=== PATIENT | male | born 1975 | race Caucasian/White ===

== ENCOUNTER 2021-12-05 14:00 | Outpatient (RCR) | payer BC, SELFPAY | END 2022-03-20 14:56 | disposition home or self-care (01) | PROVIDERS: PCP Surgery; Visit Provider Surgery | DX: M25.511 Pain in right shoulder (principal); Z51.89 Encounter for other specified aftercare | CPT/HCPCS: 97110 ==

== ENCOUNTER 2021-12-06 22:41 | Emergency (ER) | payer BC, SELFPAY ==
[2021-12-06 22:53] VITALS: BP 113/75; PULSE 94; RESP 16; TEMP 37.2; O2SAT 97; BMI 21.5
[2021-12-06 23:00] VITALS: BP 124/80; PULSE 92; RESP 16; O2SAT 97
[2021-12-06 23:30] VITALS: BP 120/79; PULSE 79; RESP 16; O2SAT 95
[2021-12-06] MEDS: 0.9 % SODIUM CHLORIDE 1000 ml 1,000 ML IV (23:43)
[2021-12-06] MEDS: ONDANSETRON 2 MG/ML inj 4 MG IVP (23:44)
[2021-12-06] MEDS: KETOROLAC 15 MG/ML inj 30 MG IVP (23:44)
[2021-12-07] VITALS: BP 112/68; PULSE 77; RESP 16; O2SAT 95
[2021-12-07 00:10] LABS: Albumin* 4.4 g/dL (3.3-5.0); Chloride* 104 mmol/L (96-114); Potassium* 3.8 mmol/L (3.6-5.1); Sodium* 137 mmol/L (135-149)
[2021-12-07 00:12] LABS: Aspartate Amino Transferase* 178 U/L (12-35); Est. Creatinine Clearance* 87.88; Estimated Glomerular Filt Rate 93 ml/min
[2021-12-07 00:13] LABS: Alanine Aminotransferase* 104 U/L (4-50); Alkaline Phosphatase* 82 U/L (40-150); Blood Urea Nitrogen* 10 mg/dL (5-24); Calcium* 8.8 mg/dL (8.4-10.6); Carbon Dioxide* 24 mmol/L (20-32); Glucose* 132 mg/dL (60-115); Total Protein* 7.2 g/dL (6.0-8.3)
[2021-12-07 00:30] VITALS: BP 114/69; PULSE 84; RESP 16; O2SAT 97
[2021-12-07] MEDS: KETAMINE HCL 20 MG in 0.9 % SODIUM CHLORIDE 100 ml 100 ML 300.6 MG IVPB (00:36)
[2021-12-07 00:44] LABS: SARS PCR* POSITIVE SARS-CoV-2 (Negative)
--- NOTE | 2021-12-07 01:05 | ED.HA ---
HPI - Headache General Chief Complaint: Unspecified Complaint, Adult Stated Complaint: Vomiting Time Seen by Provider: 12/06/21 23:02 Source: patient and RN notes reviewed Mode of arrival: ambulatory Limitations: no limitations and other (Keeps sunglasses on. Uncomfortable and not readily answering questions) History of Present Illness HPI Narrative: 46-year-old man presenting to the emergency department with complaint of headache and body aches. Symptoms began today. Early afternoon did have episodes of vomiting. Apparently that has subsided. He is here though because otherwise feels unwell with bitemporal headache that extends all the way down to his neck as well.. Not so much short of air but hurts all over such that it might be a little difficult to breathe. He has had a fever of 102.2 apparently. Significant other tested positive for COVID 5 days ago. Neither is vaccinated as to why answers ?that is just me?. No diarrhea though maybe a looser stool. No rashes noted. Would like relief of this headache. Does not generally get headaches. Notes that in the setting of these aches his left knee in particular is in pain. He does present here with a cane. He does not recount a specific injury. No swelling of this knee. Feels like it twisted it he says. Related Data Home Medications Medication Instructions Recorded Confirmed albuterol sulfate 2.5 mg/3 mL mg 12/06/21 (0.083 %) solution for nebulization albuterol sulfate 90 mcg/actuation inhalation 12/06/21 aerosol inhaler (ProAir HFA) budesonide-formoterol HFA 80 inhalation 12/06/21 mcg-4.5 mcg/actuation aerosol inhaler (Symbicort) epinephrine 0.3 mg/0.3 mL 12/06/21 injection, auto-injector hydrocodone 5 mg-acetaminophen 325 tab 12/06/21 mg tablet hydrocodone 7.5 mg-acetaminophen tab 12/06/21 325 mg tablet Previous Rx's Medication Instructions Recorded nirmatrelvir 300 mg (150 mg See Rx Instructions PO .COMPLEX 12/07/21 x2)-ritonavir 100 mg tablet,dose #30 tabs pack(EUA) (Paxlovid) ondansetron 4 mg disintegrating 4 mg PO Q4H PRN nausea and 12/07/21 tablet vomiting #15 tabs Allergies Allergy/AdvReac Type Severity Reaction Status Date / Time No Known Drug Allergies Allergy Verified 12/06/21 22:57 Review of Systems Status of ROS: Reports: 6 or more systems reviewed and unremarkable except as noted in History and below [facility] Social History Smoking Status: Current every day smoker How often do you have a drink containing alcohol: 2-3 times a week AUDIT-C Alcohol total score: 3 Non-prescribed substance use: marijuana (any form) Exam Narrative: Exam Narrative: Ball cap pulled low, sunglasses in place. Removing these does seem to be photophobic mild scleral injection. Says little. Has to be prompted to answer questions. Speaks quietly as if very uncomfortable. Cranial nerves 2-12 intact. He is moving all extremities without difficulty. Neck is sore but supple. Negative Kernig's and Brudzinski's Extremities are slim without edema. Oropharynx is moist. Lungs appear to be clear, breathing easily. Heart rate is little elevated but regular rhythm. Abdomen is flat soft nontender. Const: Vital Signs, click to edit/add: Vital Signs - 24 hr 12/06/21 22:53 12/06/21 23:00 12/06/21 23:30 Temperature 98.9 F Pulse Rate [Right Pulse Oximeter] 94 92 79 Respiratory Rate 16 16 16 Blood Pressure [Le ft Upper Arm] 113/75 124/80 120/79 Pulse Oximetry 97 97 95 Oxygen Delivery Me thod Room Air Room Air Room Air 12/07/21 00:00 12/07/21 00:30 Temperature Pulse Rate [Right Pulse Oximeter] 77 84 Respiratory Rate 16 16 Blood Pressure [Le ft Upper Arm] 112/68 114/69 Pulse Oximetry 95 97 Oxygen Delivery Me thod Room Air Room Air Documenting provider has reviewed patient's vital signs: yes Course Course Hospital Course: Interview and exam as above He would like treatment for this headache. IV therefore established. Given ketorolac Zofran and fluids. Still with pain complaint I order ketamine infusion. This helps further. Vital Signs Vital signs: Initial Vital Signs Temperature 98.9 F 12/06/21 22:53 Temperature Source Oral 12/06/21 22:53 Pulse Rate 94 12/06/21 22:53 Respiratory Rate 16 12/06/21 22:53 Blood Pressure 113/75 12/06/21 22:53 Blood Pressure Mean 87 12/06/21 22:53 Blood Pressure Position Supine 12/06/21 22:53 Pulse Oximetry 97 12/06/21 22:53 Oxygen Delivery Method 12/06/21 22:53 Vital Signs Temperature 98.9 F 12/06/21 22:53 Pulse Rate 94 12/06/21 22:53 Respiratory Rate 16 12/06/21 22:53 Blood Pressure 113/75 12/06/21 22:53 Pulse Oximetry 97 12/06/21 22:53 Oxygen Delivery Method 12/06/21 22:53 Temperature 98.9 F 12/06/21 22:53 Pulse Rate 84 12/07/21 00:30 Respiratory Rate 16 12/07/21 00:30 Blood Pressure 114/69 12/07/21 00:30 Pulse Oximetry 97 12/07/21 00:30 Oxygen Delivery Method 12/07/21 00:30 MDM - Headache MDM Narrative Medical decision making narrative: Ultimately is indeed COVID positive. Surely this COVID diagnosis is what is contributing to the myalgias and headache. Medical Records Attestation: I reviewed the patient's medical records. Lab Data Attestation: I reviewed the patient's lab results. Lab results narrative: Should be able to receive Paxlovid. He is interested in treatment Labs: Lab Results 12/06/21 12/06/21 Range/Units 23:40 23:44 Sodium 137 (135-149) mmol/L Potassium 3.8 (3.6-5.1) mmol/L Chloride 104 (96-114) mmol/L Carbon Dioxide 24 (20-32) mmol/L BUN 10 (5-24) mg/dL Creatinine 1.0 (0.5-1.5) mg/dL Estimated Creat Clear 87.88 Estimated GFR 93 ml/min Glucose 132 H (60-115) mg/dL Calcium 8.8 (8.4-10.6) mg/dL Total Bilirubin 1.0 (0.1-1.5) mg/dL AST 178 H (12-35) U/L ALT 104 H (4-50) U/L Alkaline Phosphatase 82 (40-150) U/L Total Protein 7.2 (6.0-8.3) g/dL Albumin 4.4 (3.3-5.0) g/dL SARS-CoV-2 (PCR) POSITIVE SARS-CoV-2 A (Negative) Discharge Plan Discharge Clinical Impression: SARS-CoV-2 positive, Myalgia, Headache Patient Disposition: Home w/ Parent or Adult Condition: Improved Additional Instructions: Focus on hydration. Can take up to 800 mg of ibuprofen or up to 1000 mg of acetaminophen per dose. If beginning to feel short of breath, get yourself an oxygen saturation monitor return to the emergency department for oxygen saturations of 90% or less. See this information on monoclonal antibody infusions. You may be a candidate. Please contact the [facility] to inquire further. Once feeling particularly better or in about 6 weeks, I would still strongly recommend you get the COVID vaccine. Quarantine yourself for 10-14 days from initial onset of symptoms. Prescriptions: New Paxlovid (EUA) 300 mg (150 mg x 2)-100 mg tablet See Rx Instructions .ROUTE .COMPLEX Qty: 30 0RF Rx Instructions: take TWO 150 mg tablets of nirmatrelvir with ONE 100 mg tablet of ritonavir twice daily for 5 days ondansetron 4 mg tablet,disintegrating 4 mg PO Q4H PRN (Reason: nausea and vomiting) Qty: 15 0RF No Action albuterol sulfate 2.5 mg /3 mL (0.083 %) solution for nebulization hydrocodone-acetaminophen 5-325 mg tablet hydrocodone-acetaminophen 7.5-325 mg tablet epinephrine 0.3 mg/0.3 mL auto-injector albuterol sulfate [ProAir HFA] 90 mcg/actuation HFA aerosol inhaler INHALATION budesonide-formoterol [Symbicort] 80-4.5 mcg/actuation HFA aerosol inhaler INHALATION Follow Up/Referrals: Aaron Corrigan MD [Primary Care Provider] - Stand Alone Forms: ADTZ Info Instructions
== END 2021-12-07 01:15 | disposition home or self-care (01) ==
PROVIDERS: Emergency Provider Family Medicine; PCP Surgery
DX: U07.1 COVID-19 (principal); R51.9 Headache, unspecified
CPT/HCPCS: 36415; 80053; 87635; 96365; 96375; 99283; 99284; J1885; J2405; J3490; J7030

== ENCOUNTER 2022-10-12 13:29 | Outpatient (CLI) | payer BC, SELFPAY ==
--- NOTE | 2022-10-12 13:45 | CRLHL7_ITS ---
For Patients: As a result of the Century Cures Act, medical imaging exams and procedure reports are released immediately into your electronic medical record. You may view this report before your referring provider. If you have questions, please contact your health care provider. Indication: Lumbar radicular pain. Technique: Multiplanar, multisequence MRI of the lumbar spine was performed without intravenous contrast. Comparison: MRI lumbar spine 09/12/2021. Findings: There are 5 lumbar type vertebral segments identified. The vertebral body heights are maintained without evidence of fracture. There is no discrete T1 hypointense marrow infiltrating process. The conus medullaris terminates at T12-L1, normal. Cauda equina appears unremarkable. T12-L1: No spinal canal or neural foraminal stenosis. L1-2: No spinal canal or neural foraminal stenosis. L2-3: No spinal canal or neural foraminal stenosis. L3-4: Disc degeneration. Small central annular fissure. Minimal disc bulge without spinal canal or neural foraminal narrowing. L4-5: Mild disc degeneration. Disc bulge with superimposed central disc protrusion. Mild spinal canal narrowing. Mild neural foraminal narrowing. Mild facet arthropathy. Stable. L5-S1: Prior left laminectomy. Mild disc degeneration. Disc bulge with superimposed central disc protrusion. Mild spinal canal and neural foraminal narrowing. [id number] facet arthropathy. Slightly progressed. Mild sacroiliac joint osteoarthritis. Impression: 1. At L5-S1, prior left laminectomy. Slightly progressed degeneration with central disc protrusion resulting in mild spinal canal narrowing. Mild neural foraminal narrowing. 2. At L4-5, stable mild spinal canal and neural foraminal narrowing. 3. Multilevel facet arthropathy. Dictated by Abraham Luciano MD @ 10/14/2022 7:54:33 AM (Electronically Signed)
--- NOTE | 2022-10-12 14:30 | CRLHL7_ITS ---
For Patients: As a result of the Century Cures Act, medical imaging exams and procedure reports are released immediately into your electronic medical record. You may view this report before your referring provider. If you have questions, please contact your health care provider. INDICATION: Shoulder pain. Impingement. COMPARISON: None. TECHNIQUE: Axial T1 and PD fat-sat, coronal PD, T2 and PD fat sat and sagittal PD and T2 left shoulder sequences. FINDINGS: Rotator cuff: Minor patchy intermediate signal tendinosis supraspinatus. Intact infraspinatus and teres minor. Normal caliber and signal. Subscapular intact with some intersubstance intermediate signal tendinosis at the insertion. No rotator cuff muscle atrophy or edema. - Acromioclavicular joint and coracoacromial arch: Curved type 2 acromial undersurface with patent acromiohumeral distance thin line of edema and trace fluid in the subacromial/subdeltoid bursa. Mild arthrosis AC joint with small effusion. No widening. No osteophyte. No clavicular dislocation or fracture. Subcoracoid interval is patient. - Biceps labral complex: No discrete labral tear. Intact biceps anchor and appropriately located biceps tendon. - Glenohumeral joint: Uniform cartilage. Physiologic fluid. No capsulitis. - Bones and soft tissues: No fracture or bone lesion. Deltoid bulk and signal is normal. Visualized axilla is clear. IMPRESSION: 1. Mild tendinopathy supraspinatus and subscapularis. No tear. 2. Mild AC DJD. Dictated by Derek Horn MD @ 10/15/2022 9:58:15 AM (Electronically Signed)
== END 2022-10-12 13:30 | disposition home or self-care (01) ==
LOC: MRI 13:31
PROVIDERS: PCP Surgery; Visit Provider Family Medicine
DX: M54.16 Radiculopathy, lumbar region (principal); M51.26 Other intervertebral disc displacement, lumbar region; Z98.890 Other specified postprocedural states
CPT/HCPCS: 72148; 73221

== ENCOUNTER 2023-01-03 19:05 | Emergency (ER) | payer BC, SELFPAY ==
[2023-01-03 19:16] VITALS: BP 156/90; PULSE 111; RESP 18; TEMP 36.7; O2SAT 97
[2023-01-03 19:20] VITALS: BP 113/72; PULSE 98; RESP 18; O2SAT 97
[2023-01-03 19:30] VITALS: BP 116/72; PULSE 96; RESP 18; O2SAT 97
--- NOTE | 2023-01-03 19:32 | XR_ITS ---
Patient: KAT SNIDER Facility:?[facility] Patient ID:?[id number] Site Patient ID:?[id number]. Site :?[id number] Study:?XRay-Chest 2 VIEW-01/03/2023 7:46:33 PM Ordering Physician:?Dell Walker Final Report: INDICATION: Chest pain. TECHNIQUE: Chest radiographs, two views COMPARISON: None. FINDINGS: Lines/Tubes/Devices: None. Mediastinum: Normal cardiac silhouette. Lungs: No focal consolidation. Pleura: No pleural effusions or pneumothorax. Bones: No acute osseous abnormalities. Soft tissues: Unremarkable. IMPRESSION: No acute cardiopulmonary process. Dictated by Brant Carrion MD @ 01/03/2023 7:57:44 PM Signed by:?Brant Carrion MD @01/03/2023 7:57:44 PM (Electronic Signature)
[2023-01-03] MEDS: KETOROLAC 15 MG/ML inj IVP (19:37)
[2023-01-03 19:41] LABS: Basophils Absolute Auto 0.02 K/uL (0.00-0.30); Basophils Percent Auto 0.2 % (0.0-3.0); Eosinophils Absolute Auto 0.06 K/uL (0.00-0.50); Eosinophils Percent Auto 0.6 % (0.0-7.0); Hematocrit 47.2 % (37.0-53.0); Hemoglobin* 15.9 gm/dL (13.5-17.5); Immature Granulocytes Abs Auto 0.02 K/uL (0.00-0.30); Immature Granulocytes Pct Auto 0.2 %; Lymphocytes Percent Auto 27.1 % (20-44); Mean Corpuscular HGB Conc 34 gm/dL (32-36); Mean Corpuscular Hemoglobin 36 pg (26-34); Mean Corpuscular Volume 106 fL (80-100); Monocytes Percent Auto 5.4 % (0.0-11.0); Neutrophils Absolute Auto 6.63 K/uL (1.7-7.0); Neutrophils Percent Auto 66.5 % (42.0-72.0); Platelet Count* 216 K/uL (140-440); Red Blood Count 4.45 m/uL (4.30-5.90); White Blood Count* 9.97 K/uL (4.50-11.00)
[2023-01-03 19:45] LABS: Albumin* 4.9 g/dL (3.3-5.0); Chloride* 104 mmol/L (96-114)
[2023-01-03 19:46] LABS: Potassium* 4.6 mmol/L (3.6-5.1); Sodium* 140 mmol/L (135-149)
[2023-01-03 19:48] LABS: Alanine Aminotransferase* 125 U/L (4-50); Alkaline Phosphatase* 92 U/L (40-150); Anion Gap 13 mEq/L (7-15); Aspartate Amino Transferase* 184 U/L (12-35); Bilirubin Total* 1.8 mg/dL (0.1-1.5); Blood Urea Nitrogen* 15 mg/dL (5-24); Carbon Dioxide* 23 mmol/L (20-32); Creatinine* 0.9 mg/dL (0.5-1.5); Estimated Glomerular Filt Rate 105 ml/min; Glucose* 55 mg/dL (60-115); Total Protein* 8.2 g/dL (6.0-8.3)
[2023-01-03 19:49] LABS: Calcium* 9.9 mg/dL (8.4-10.6); D Dimer Quantitative* 0.62 ug/ml (0.00-0.50)
[2023-01-03 19:50] VITALS: BP 126/84; PULSE 96; RESP 18; O2SAT 97
[2023-01-03 19:58] LABS: Slide Review Reflex No
[2023-01-03 20:01] LABS: Troponin I* 0.02 ng/mL (0.01-0.04)
--- NOTE | 2023-01-03 20:09 | CRLHL7_ITS ---
For Patients: As a result of the Century Cures Act, medical imaging exams and procedure reports are released immediately into your electronic medical record. You may view this report before your referring provider. If you have questions, please contact your health care provider. INDICATION: Chest pain, elevated D-dimer, shortness of breath. TECHNIQUE: CT chest PE was acquired with 95 cc Isovue 370 IV contrast. COMPARISON: None. FINDINGS: Heart and vasculature: Contrast opacification of the pulmonary arterial tree is adequate. No sign of pulmonary embolism. Heart size is normal. Thoracic aorta and pulmonary artery are normal in caliber. Lungs and pleura: No suspicious nodules or infiltrates. No pleural effusions, pleural thickening, or pneumothorax. Lymph nodes/mediastinum: No mediastinal, hilar, or axillary adenopathy. Chest wall: No masses. Upper abdomen: No acute or significant findings. Hepatic steatosis. Bones: Unremarkable for age. IMPRESSION: No pulmonary embolism. No focal consolidations. Please note that all CT scans at this facility use dose modulation, iterative reconstruction, and/or weight-based dosing when appropriate to reduce radiation dose to as low as reasonably achievable. Dictated by Jensen Combs MD @ 01/03/2023 8:47:02 PM (Electronically Signed)
--- NOTE | 2023-01-03 20:50 | ED.GENADULT ---
HPI - General Adult General Date Seen: 01/03/23 Chief complaint: Chest Pain Stated complaint: Chest pain Time Seen by Provider: 01/03/23 19:20 Source: patient Mode of arrival: ambulatory Limitations: no limitations History of Present Illness HPI narrative: Patient is a 47-year-old male presented emergency department for chest pain. States chest pain has been going on for the past few months. His in his precordial region. States the pain will intermittently changing over from a dull mild pain to a sharp severe pain. Occasionally says the pain is dull. Pain does not radiate anywhere. States it is painful to take deep breath in the exam few short of breath. Denies any fevers, chills, abdominal pain, nausea/vomiting, diarrhea, constipation, weakness, diarrhea. Does state he will have occasional dizziness and hot flashes. Has never seen a clinical documentation specialist but does have a primary care provider. No known history of heart disease but does state several years ago he developed pericarditis after heat exhaustion. Currently the pain is not affected by position. Does admit to smoking cigarettes every day. He has no history of blood clots no history of unilateral lower extremity. Has had no recent travel or surgery. Related Data Home Medications Medication Instructions Recorded Confirmed albuterol sulfate 2.5 mg/3 mL mg 12/06/21 (0.083 %) solution for nebulization albuterol sulfate 90 mcg/actuation inhalation 12/06/21 aerosol inhaler (ProAir HFA) budesonide-formoterol HFA 80 inhalation 12/06/21 mcg-4.5 mcg/actuation aerosol inhaler (Symbicort) epinephrine 0.3 mg/0.3 mL 12/06/21 injection, auto-injector hydrocodone 5 mg-acetaminophen 325 tab 12/06/21 mg tablet hydrocodone 7.5 mg-acetaminophen tab 12/06/21 325 mg tablet Previous Rx's Medication Instructions Recorded nirmatrelvir 300 mg (150 mg See Rx Instructions PO .COMPLEX 12/07/21 x2)-ritonavir 100 mg tablet,dose #30 tabs pack (Paxlovid) ondansetron 4 mg disintegrating 4 mg PO Q4H PRN nausea and 12/07/21 tablet vomiting #15 tabs Allergies Allergy/AdvReac Type Severity Reaction Status Date / Time No Known Drug Allergies Allergy Verified 12/06/21 22:57 Review of Systems Status of ROS: Reports: 10 or more systems reviewed and unremarkable except as noted in History and below [facility] Social History Smoking Status: Current every day smoker Do you use any of these nicotine containing products: None How often do you have a drink containing alcohol: 2-3 times a week AUDIT-C Alcohol total score: 3 Non-prescribed substance use: marijuana (any form) Exam Narrative: Exam Narrative: Const: Well-nourished, Well-developed, in mild distress Eyes: PERRL, no conjunctival injection, and symmetrical lids ENMT: Atraumatic external nose and ears. Moist mucous membranes. Neck: Symmetric, trachea midline, No thyromegaly. CVS: RRR, No murmurs or gallops. Peripheral pulses 2+ and equal in all extremities RESP: Unlabored respiratory effort. Clear to auscultation bilaterally. GI: Nontender/Nondistended, No rebound or guarding. MSK:Extremities w/o deformity, Normal Active ROM. No tenderness to palpation of the chest Skin: Warm, Dry. No rashes or lesions. Neuro: Normal Muscle tone, No focal neurological deficits. Psych: Awake, Alert, & Oriented x3. Appropriate mood and affect. Const: Vital Signs, click to edit/add: Vital Signs - 24 hr 01/03/23 19:16 01/03/23 19:20 01/03/23 19:30 Temperature 98.0 F Pulse Rate [Left P ulse Oximeter] 111 H 98 96 Respiratory Rate 18 18 18 Blood Pressure [Le ft Upper Arm] 156/90 H 113/72 116/72 Pulse Oximetry 97 97 97 Oxygen Delivery Me thod Room Air Room Air Room Air 01/03/23 19:50 Temperature Pulse Rate [Left P ulse Oximeter] 96 Respiratory Rate 18 Blood Pressure [Le ft Upper Arm] 126/84 Pulse Oximetry 97 Oxygen Delivery Me thod Room Air Course Vital Signs Vital signs: Initial Vital Signs Temperature 98.0 F 01/03/23 19:16 Temperature Source Temporal Artery Scan 01/03/23 19:16 Pulse Rate 111 H 01/03/23 19:16 Pulse Rhythm Regular 01/03/23 19:16 Respiratory Rate 18 01/03/23 19:16 Blood Pressure 156/90 H 01/03/23 19:16 Blood Pressure Mean 112 H 01/03/23 19:16 Blood Pressure Position Semi-Fowlers 01/03/23 19:16 Pulse Oximetry 97 01/03/23 19:16 Oxygen Delivery Method Room Air 01/03/23 19:16 Vital Signs Temperature 98.0 F 01/03/23 19:16 Pulse Rate 111 H 01/03/23 19:16 Respiratory Rate 18 01/03/23 19:16 Blood Pressure 156/90 H 01/03/23 19:16 Pulse Oximetry 97 01/03/23 19:16 Oxygen Delivery Method Room Air 01/03/23 19:16 Temperature 98.0 F 01/03/23 19:16 Pulse Rate 96 01/03/23 19:50 Respiratory Rate 18 01/03/23 19:50 Blood Pressure 126/84 01/03/23 19:50 Pulse Oximetry 97 01/03/23 19:50 Oxygen Delivery Method Room Air 01/03/23 19:50 Medical Decision Making MDM Narrative Medical decision making narrative: Patient is a 47-year-old male presents emergency department for chest pain. Veins were not for the past several months and is localized just to his the precordial region. Does have some pain with deep breath does make me concern for pulmonary embolism at this time. All is unlikely considering the length of symptoms. ACS, pneumothorax also in the differential. He has no pain to palpation so unlikely be costochondritis. Cardiac workup was ordered on this patient. Does not appear to be pericarditis at this time Patient's EKG showed no concerning abnormalities. Patient's lab work all returned showing no concerning abnormalities other than a D-dimer of 0.62. We cannot age adjusted at this time. His LFTs slightly elevated with a appear to be at his baseline. With elevated D-dimer CTA was ordered. He returned showing no concerning abnormalities. Heart score is 2. Is unclear what is causing his symptoms at this time was not appear to be in being emergent he can be safely discharged home. Informed have close follow-up with his primary care doctor. Lab Data Labs: Lab Results 01/03/23 Range/Units 19:20 WBC 9.97 (4.50-11.00) K/uL RBC 4.45 (4.30-5.90) m/uL Hgb 15.9 (13.5-17.5) gm/dL Hct 47.2 (37.0-53.0) % MCV 106 H (80-100) fL MCH 36 H (26-34) pg MCHC 34 (32-36) gm/dL RDW Coeff of Ileana 13.0 (11.5-15.5) % Plt Count 216 (140-440) K/uL Neut % (Auto) 66.5 (42.0-72.0) % Lymph % (Auto) 27.1 (20-44) % [place] % (Auto) 5.4 (0.0-11.0) % Eos % (Auto) 0.6 (0.0-7.0) % Baso % (Auto) 0.2 (0.0-3.0) % Neut # (Auto) 6.63 (1.7-7.0) K/uL Lymph # (Auto) 2.70 (0.90-2.90) K/uL [place] # (Auto) 0.50 (0.00-0.90) K/UL Eos # (Auto) 0.06 (0.00-0.50) K/uL Baso # (Auto) 0.02 (0.00-0.30) K/uL Abs Immat Gran (auto) 0.02 (0.00-0.30) K/uL Imm/Tot Granulo (auto) 0.2 % D-Dimer Quant (PE/DVT) 0.62 H (0.00-0.50) ug/ml Sodium 140 (135-149) mmol/L Potassium 4.6 (3.6-5.1) mmol/L Chloride 104 (96-114) mmol/L Carbon Dioxide 23 (20-32) mmol/L Anion Gap 13 (7-15) mEq/L BUN 15 (5-24) mg/dL Creatinine 0.9 (0.5-1.5) mg/dL Estimated GFR 105 ml/min Glucose 55 L (60-115) mg/dL Calcium 9.9 (8.4-10.6) mg/dL Magnesium 2.0 (1.5-2.6) mg/dL Total Bilirubin 1.8 H (0.1-1.5) mg/dL AST 184 H (12-35) U/L ALT 125 H (4-50) U/L Alkaline Phosphatase 92 (40-150) U/L Troponin I 0.02 (0.01-0.04) ng/mL Total Protein 8.2 (6.0-8.3) g/dL Albumin 4.9 (3.3-5.0) g/dL Imaging Data Chest CTA: Radiologist's impression: INDICATION: Chest pain, elevated D-dimer, shortness of breath. TECHNIQUE: CT chest PE was acquired with 95 cc Isovue 370 IV contrast. COMPARISON: None. FINDINGS: Heart and vasculature: Contrast opacification of the pulmonary arterial tree is adequate. No sign of pulmonary embolism. Heart size is normal. Thoracic aorta and pulmonary artery are normal in caliber. Lungs and pleura: No suspicious nodules or infiltrates. No pleural effusions, pleural thickening, or pneumothorax. Lymph nodes/mediastinum: No mediastinal, hilar, or axillary adenopathy. Chest wall: No masses. Upper abdomen: No acute or significant findings. Hepatic steatosis. Bones: Unremarkable for age. IMPRESSION: No pulmonary embolism. No focal consolidations. Please note that all CT scans at this facility use dose modulation, iterative reconstruction, and/or weight-based dosing when appropriate to reduce radiation dose to as low as reasonably achievable. Dictated by Jensen Combs MD @ 01/03/2023 8:47:02 PM ECG Data Attestation: I personally reviewed and interpreted this ECG as follows: Prior ECG tracings: not available for review Interpretation: Sinus tachycardia rate of 113 beats per minute, normal intervals, normal axis, no ST or T-wave abnormalities. Occasional PVCs Discharge Plan Discharge Clinical Impression: Atypical chest pain Patient Disposition: Home, Self-Care Condition: Stable Instructions: Noncardiac Chest Pain (ED) Additional Instructions: Follow-up with the primary care provider. Return for new worsening symptoms. Take Tylenol and ibuprofen for pain Prescriptions: No Action albuterol sulfate 2.5 mg /3 mL (0.083 %) solution for nebulization hydrocodone-acetaminophen 5-325 mg tablet hydrocodone-acetaminophen 7.5-325 mg tablet epinephrine 0.3 mg/0.3 mL auto-injector albuterol sulfate [ProAir HFA] 90 mcg/actuation HFA aerosol inhaler INHALATION budesonide-formoterol [Symbicort] 80-4.5 mcg/actuation HFA aerosol inhaler INHALATION Paxlovid 300 mg (150 mg x 2)-100 mg tablet See Rx Instructions .ROUTE .COMPLEX Qty: 30 0RF Rx Instructions: take TWO 150 mg tablets of nirmatrelvir with ONE 100 mg tablet of ritonavir twice daily for 5 days ondansetron 4 mg tablet,disintegrating 4 mg PO Q4H PRN (Reason: nausea and vomiting) Qty: 15 0RF Follow Up/Referrals: Aaron Corrigan MD [Primary Care Provider] - Stand Alone Forms: AddSearch Info Instructions
== END 2023-01-03 21:13 | disposition home or self-care (01) ==
PROVIDERS: Emergency Provider Student in an Organized Health Care Education/Training Program; PCP Surgery
DX: R07.9 Chest pain, unspecified (principal)
CPT/HCPCS: 36415; 71046; 71275; 80053; 83735; 84484; 85025; 85379; 93005; 96374; 99283; 99284; J1885; Q9967

== ENCOUNTER 2023-02-07 15:45 | Outpatient (RCR) | payer BC, SELFPAY | END 2023-04-09 11:20 | disposition home or self-care (01) | PROVIDERS: PCP Surgery; Visit Provider Orthopaedic Surgery | DX: M25.512 Pain in left shoulder (principal); R53.1 Weakness; M25.812 Other specified joint disorders, left shoulder; Z51.89 Encounter for other specified aftercare | CPT/HCPCS: 97110; 97140; 97161 ==

== ENCOUNTER 2023-04-08 13:55 | Outpatient (CLI) | payer BC, SELFPAY ==
--- NOTE | 2023-04-08 14:30 | MR_ITS ---
[address] [address] Phone:?[phone] Fax:?[phone] Referring Physician Information: Derek Gore M.D. [address] [facility] [address] Phone:?[phone] Fax:?[phone] Patient:Clarissa Smith D.O.B:?1975 Sex:?Male Phone:?[phone] [facility] MRN:?[id number] Exam Date:?04/08/2023 EXAM: MRI of the RIGHT SHOULDER, without contrast CLINICAL INFORMATION: Male, 48 years old, with right shoulder pain INDICATION: Chronic right shoulder pain PRIOR SURGERY: History of prior surgery, date unspecified PLAIN FILMS: None available. COMPARISONS: Right shoulder MRI 04/28/2021 TECHNICAL INFORMATION: Using a 1.5T MR scanner and a localizing surface coil: Coronals: PD, T2FS Sagittals: PDFS, T2 Axials: PD, PDFS SEDATION: None CONTRAST: None FINDINGS: Bones: Proximal humerus: No fracture. Suture anchor in the greater tuberosity keeping with history of prior surgery. No humeral Hill-Sachs or reverse Hill-Sachs lesion/impaction or contusion. Glenoid: No fracture or marrow edema/pathology. No osseous Bankart lesion. Rotator cuff and muscles/tendons: Supraspinatus: There is mild thickening and irregularity of the far anterior distal tendon with partial thickness articular sided tearing of the posterior supraspinatus extending into the anterior infraspinatus which is slightly increased in size compared to the prior exam, measuring approximately 0.4 x 1.3 cm (coronal series 4 image 15). Partial-thickness undersurface and interstitial tearing is also seen involving the posterior tendon at the insertional footprint extending to involve the anterior infraspinatus distal tendon fibers, measuring 0.9 cm in anteroposterior dimension (coronal series 4 images 16-17 this involves approximately a percent tendon thickness. Superimposed bursal sided fraying of the anterior distal tendon fibers. Mild fatty atrophy of the muscle belly is similar in appearance to the prior exam. Infraspinatus: Small region of high-grade or full-thickness tearing of the infraspinatus at the insertional footprint measuring approximately 0.6 cm in AP dimension (coronal series 4 images 19-20). This is new from the prior exam. No muscle belly atrophy. Teres minor: No tendinopathy, tear or atrophy. Subscapularis: No tendinopathy, tear or atrophy. Deltoid: No strain or atrophy. Coracoacromial arch: Acromion morphology: Postoperative changes of acromioplasty. No discrete subacromial osseous spur or os acromiale. Acromiohumeral space: The acromiohumeral space is within normal limits. Coracohumeral space: The coracohumeral space is within normal limits. Acromioclavicular joint: Joint: Surgical changes of distal clavicle excision, with excellent inferior decompression. Ligaments: Coracoclavicular ligaments are intact. Bursae: Subacromial-subdeltoid: Mild subacromial bursitis Subcoracoid: No convincing subcoracoid bursal thickening/bursitis. Biceps tendon: The long head of the biceps tendon is not visualized within the intra-articular or proximal bicipital groove. Glenohumeral joint: Effusion/cyst: No significant glenohumeral joint effusion. Articular cartilage: Humeral head: No osteochondral abnormalities. Glenoid: No osteochondral abnormalities. Loose bodies: No discrete intra-articular body within the joint. Labrum:?The labrum is suboptimally evaluated given lack of intra-articular joint fluid or contrast. Within the confines, no well-defined labral tear is identified. No paralabral ganglion cyst is identified. Inferior glenohumeral ligament/axillary pouch:?Intact. The axillary pouch is normal in thickness and signal. No evidence of adhesive capsulitis or capsular injury. IMPRESSION: 1. Postoperative appearance of the proximal humerus. There is mild thickening and irregularity of the distal supraspinatus tendon which may reflect combination of prior tearing and postoperative change. Low-grade undersurface and interstitial tearing of the mid to posterior distal tendon as described above extending into the anterior infraspinatus distal tendon, without high- grade or full-thickness tendon tear. Mild muscle belly atrophy is unchanged. 2. Small region of high-grade or full-thickness tearing of the infraspinatus at the insertional footprint measuring approximately 0.6 cm in AP dimension, new from the prior exam. 3. Surgical changes of acromioplasty and distal clavicle excision, with adequate inferior compression. 4. Mild subacromial bursitis. 5. Nonvisualization of the long head biceps tendon may reflect proximal rupture and retraction versus surgical changes of sternotomy. 6. Suboptimal evaluation of labrum with irregular intra-articular joint fluid or contrast, however no well-defined labral tear is identified. 7. No osteochondral defect. KME Electronically signed on 04/09/2023 1:26:00 PM by Thuy Guthrie M.D.
== END 2023-04-08 13:56 | disposition home or self-care (01) ==
PROVIDERS: PCP Surgery; Visit Provider Family Medicine
DX: M25.511 Pain in right shoulder (principal); S46.911A Strain of unspecified muscle, fascia and tendon at shoulder and upper arm level, right arm, initial encounter; M75.51 Bursitis of right shoulder; M75.101 Unspecified rotator cuff tear or rupture of right shoulder, not specified as traumatic; R29.898 Other symptoms and signs involving the musculoskeletal system
CPT/HCPCS: 73221

== ENCOUNTER 2024-05-15 14:10 | Outpatient (CLI) | payer BC, SELFPAY ==
--- NOTE | 2024-05-15 14:30 | CRLHL7_ITS ---
For Patients: As a result of the Century Cures Act, medical imaging exams and procedure reports are released immediately into your electronic medical record. You may view this report before your referring provider. If you have questions, please contact your health care provider. Indication: Lumbar radicular pain. Technique: Multiplanar, multisequence MRI of the lumbar spine was performed without intravenous contrast. Comparison: MRI lumbar spine 10/12/2022. Findings: There are 5 lumbar type vertebral segments identified. The vertebral body heights are maintained without evidence of fracture. There is no discrete T1 hypointense marrow infiltrating process. The conus medullaris terminates at L1, normal. Cauda equina appears unremarkable. T12-L1: No spinal canal or neural foraminal stenosis. L1-2: No spinal canal or neural foraminal stenosis. L2-3: No spinal canal or neural foraminal stenosis. L3-4: Disc degeneration. Minimal disc bulge without spinal canal narrowing. No neural foraminal narrowing. Mild facet arthropathy. L4-5: Disc degeneration. Disc bulge combined with facet arthropathy results in mild spinal canal narrowing. Mild neural foraminal narrowing. Mild facet arthropathy. Stable. L5-S1: Disc degeneration. Prior left hemilaminectomy. Central disc protrusion with overall mild spinal canal narrowing. Mild neural foraminal narrowing secondary to disc bulging and facet arthropathy. Stable. Mild sacroiliac joint osteoarthritis. Impression: 1. At L4-5, stable mild spinal canal and neural foraminal narrowing. 2. At L5-S1, stable central disc protrusion with mild spinal canal narrowing. Mild neural foraminal narrowing. Dictated by Abraham Luciano MD @ 05/16/2024 2:08:58 PM (Electronically Signed)
== END 2024-05-15 14:11 | disposition home or self-care (01) ==
LOC: MRI 14:12
PROVIDERS: PCP Surgery; Visit Provider Family Medicine
DX: M54.16 Radiculopathy, lumbar region (principal); M51.26 Other intervertebral disc displacement, lumbar region; M51.27 Other intervertebral disc displacement, lumbosacral region; M47.816 Spondylosis without myelopathy or radiculopathy, lumbar region; Z98.890 Other specified postprocedural states
CPT/HCPCS: 72148